=== PATIENT | female | born 1965 | race Caucasian/White ===

== ENCOUNTER 2017-03-22 09:02 | Outpatient (CLI) | payer OTHER ==
[2017-03-22] MEDS ORDERED: IOPAMIDOL-300 50 ML VIAL PO ONE (10:38)
[2017-03-22] MEDS ORDERED: IOPAMIDOL-300 100 ML VIAL IVP ONE (10:38)
== END 2017-03-22 09:03 | disposition home or self-care (01) ==
DX: R93.5 Abnormal findings on diagnostic imaging of other abdominal regions, including retroperitoneum (principal)
CPT/HCPCS: 74177; Q9967

== ENCOUNTER 2017-12-16 14:47 | Outpatient (CLI) | payer OTHER ==
--- NOTE | 2017-12-19 12:46 | Mammography Report ---
DIGITAL SCREENING MAMMOGRAM: 12/16/2017 CLINICAL INDICATION: A 52-year-old nulliparous patient with family history of breast cancer, for screening. COMPARISON: 02/2014, 10/2011, 03/2009, 02/2009. TECHNIQUE: Routine CC and MLO projections were obtained of the breasts. FINDINGS: The breasts again demonstrate heterogeneously dense fibroglandular parenchyma bilaterally. Punctate, typically benign calcifications are present. No suspicious masses, clustered microcalcifications, or regions of architectural distortion are identified. IMPRESSION: BENIGN FINDINGS. RECOMMENDATION: ROUTINE ANNUAL SCREENING UNLESS OTHERWISE CLINICALLY INDICATED. BIRADS CATEGORY 2-BENIGN FINDINGS. STANDARD QUALIFYING STATEMENTS: 1. This examination was reviewed with the aid of Computer-Aided Detection (CAD). 2. A negative or benign imaging report should not delay biopsy if clinically suspicious findings are present. Consider surgical consultation if warranted. More than 5% of cancers are not identified by imaging. 3. Dense breasts may obscure an underlying neoplasm. TD: 12/19/2017 12:46
== END 2017-12-16 14:48 | disposition home or self-care (01) ==
LOC: DI.S 14:47
PROVIDERS: ATTEND Physician Assistant
DX: Z12.31 Encounter for screening mammogram for malignant neoplasm of breast (principal); Z80.3 Family history of malignant neoplasm of breast
CPT/HCPCS: 77067

== ENCOUNTER 2018-03-06 11:16 | Day surgery (SDC) | payer OTHER ==
[2018-03-06] MEDS ORDERED: LACTATED RINGERS 1,000 ML IV ONE (11:47)
[2018-03-06] MEDS ORDERED: MIDAZOLAM 2 MG/2 ML VIAL IVP ONE (12:47)
[2018-03-06] MEDS ORDERED: fentaNYL 250 MCG/5 ML VIAL IVP ONE (12:47)
[2018-03-06 13:52] VITALS: BP 101/65
== END 2018-03-06 11:17 | disposition home or self-care (01) ==
LOC: SDS 11:16
PROVIDERS: ATTEND Surgery
PROC: 0DJD8ZZ Inspection of Lower Intestinal Tract, Via Natural or Artificial Opening Endoscopic (ICD-10-PCS; principal; 2018-03-06 12:45)
DX: Z12.11 Encounter for screening for malignant neoplasm of colon (principal); K57.30 Diverticulosis of large intestine without perforation or abscess without bleeding; K64.8 Other hemorrhoids
CPT/HCPCS: 45378; J3010; J7120

== ENCOUNTER 2019-03-12 14:00 | Outpatient (CLI) | payer OTHER ==
--- NOTE | 2019-03-13 10:47 | Mammography Report ---
Reason: SCREENING MAMMO Procedure Date: 03/12/2019 Accession Number: [id number] / [id number] Procedure: EMILI - Screening Mammo w/Octavio CPT Code: FULL RESULT: EXAM: Screening Mammo w/Octavio DATE: 03/12/2019 3:03 PM CLINICAL HISTORY: Screening encounter. History of benign breast cyst aspiration. Family history of breast cancer in the mother at age 67. History of nulliparity. TECHNIQUE: (B) - Bilateral CC, laterally exaggerated CC, MLO views were obtained. COMPARISON: 12/16/2017 through 03/19/2009. PARENCHYMAL PATTERN: (D) - The breast(s) demonstrate(s) heterogeneously dense fibroglandular parenchyma. FINDINGS: There are no suspicious masses, calcifications, or areas of distortion. IMPRESSION: Negative examination. BI-RADS category 1. RECOMMENDATION: (ANNUAL) - Recommend routine annual screening mammography. BI-RADS CATEGORY: (1) - Negative. STANDARD QUALIFYING STATEMENTS: 1. This examination was not reviewed with the aid of Computer-Aided Detection (CAD). 2. A negative or benign imaging report should not preclude biopsy if clinically suspicious findings are present. 3. Dense breasts may obscure an underlying neoplasm. 4. This examination was reviewed with the aid of 3D breast imaging (tomosynthesis).
== END 2019-03-12 14:01 | disposition home or self-care (01) ==
LOC: DI 14:00
PROVIDERS: ATTEND Physician Assistant
DX: Z12.31 Encounter for screening mammogram for malignant neoplasm of breast (principal)
CPT/HCPCS: 77063; 77067

== ENCOUNTER 2021-07-08 14:15 | Outpatient (CLI) | payer OTHER ==
--- NOTE | 2021-07-09 13:22 | Mammography Report ---
BILATERAL DIGITAL SCREENING MAMMOGRAM 3D/2D WITH EXAGGERATED CC: 07/08/2021 CLINICAL: Family history of breast cancer. Comparison is made to exams dated: 12/16/2017 mammogram, 02/14/2014 mammogram, 10/13/2011 mammogram, 03/07 mammogram, and 02/24/2009 mammogram - [facility]. The tissue of both breasts is heterogeneously dense. This may lower the sensitivity of mammography. No significant masses, calcifications, or other findings are seen in either breast. There has been no significant interval change. IMPRESSION: NEGATIVE There is no mammographic evidence of malignancy. A 1 year screening mammogram is recommended. This exam was interpreted at Station ID: [id number]. NOTE: For mammograms, a report in lay terms will be sent to the patient. Approximately 15% of breast malignancies will not be visualized mammographically. In the management of a palpable breast mass, a negative mammogram must not discourage biopsy of a clinically suspicious lesion. Electronically Signed By: Yamileth henry/mony:07/08/2021 16:20:48 ACR BI-RADS Category 1: Negative 3341F PARENCHYMAL PATTERN: (D) - The breast(s) demonstrate(s) heterogeneously dense fibroglandular gem yoder. BI-RADS CATEGORY: (1) - 1 RECOMMENDATION: (ANNUAL) - Recommend routine annual screening mammography. 20220709 1 year screening LATERALITY: (B)
== END 2021-07-08 14:16 | disposition home or self-care (01) ==
LOC: DI.S 14:15
DX: Z12.31 Encounter for screening mammogram for malignant neoplasm of breast (principal); Z80.3 Family history of malignant neoplasm of breast

== ENCOUNTER 2021-07-08 14:26 | Outpatient (CLI) | payer OTHER ==
[2021-07-08 20:22] LABS: ALBUMIN 4.2 g/dL (3.2-5.5); ALBUMIN/GLOBULIN RATIO 1.6 (1.0-2.2); ALKALINE PHOSPHATASE 44 IU/L (42-121); ALT ALANINE AMINOTRANSFERASE 17 IU/L (10-60); AST ASPARTATE AMINOTRANSFERASE 19 IU/L (10-42); BILIRUBIN,TOTAL 0.8 mg/dL (0.2-1.0); BUN - BLOOD UREA NITROGEN 11 mg/dL (6-20); CALCIUM 9.3 mg/dL (8.5-10.3); CARBON DIOXIDE - CO2 28 mmol/L (21-32); CHLORIDE 104 mmol/L (101-111); CHOL/HDL RATIO 4.2 (<4.4); CHOLESTEROL 258 mg/dL; CREATININE 0.7 mg/dL (0.4-1.0); GFR - MDRD 86 (>89); GLUCOSE 111 mg/dL (70-100); HDL CHOLESTEROL 61 mg/dL; LDL CHOLESTEROL,CALCULATED 174 mg/dL; LDL/HDL RATIO 2.9 (<4.4); POTASSIUM 3.8 mmol/L (3.5-5.0); SODIUM 140 mmol/L (135-145); TOTAL PROTEIN 6.9 g/dL (6.7-8.2); TRIGLYCERIDES 117 mg/dL; VLDL CHOLESTEROL 23 mg/dL
[2021-07-10 09:03] LABS: HEPATITIS C ANTIBODY NON-REACTIVE (NON-REACTIVE)
[2021-07-11 15:12] LABS: HIV AG/AB 4TH GEN NON-REACTIVE (NON-REACTIVE)
== END 2021-07-08 14:27 | disposition home or self-care (01) ==
LOC: LAB.S 14:26
PROVIDERS: ATTEND Nurse Practitioner Family
DX: E78.2 Mixed hyperlipidemia (principal); Z11.59 Encounter for screening for other viral diseases; Z11.4 Encounter for screening for human immunodeficiency virus [HIV]
CPT/HCPCS: 36415; 80053; 80061; 83721; 86803; 87389

== ENCOUNTER 2022-08-09 13:59 | Outpatient (CLI) | payer BC ==
--- NOTE | 2022-08-10 11:52 | Mammography Report ---
BILATERAL DIGITAL SCREENING MAMMOGRAM 3D/2D WITH EXAGGERATED CC: 08/09/2022 CLINICAL: Routine screening. Family history of breast cancer. Comparison is made to exams dated: 07/08/2021 mammogram, 12/16/2017 mammogram, and 03/12/2019 mammogram - [facility]. Both breasts are heterogeneously dense, which may obscure small masses (category c / 51-75% glandula r tissue). No significant masses, calcifications, or other findings are seen in either breast. There has been no significant interval change. IMPRESSION: NEGATIVE There is no mammographic evidence of malignancy. A 1 year screening mammogram is recommended. Based on the Tyrer Cuzick model (a risk assessment model) the patients lifetime risk is 13.6% and he r 10 year risk is 5.1%. According to the ACR, ACS, and NCCN guidelines, an annual breast MRI exam sandhya ng with mammogram is recommended if the patients lifetime risk is 20% or greater. This exam was interpreted at Station ID: [id number]. NOTE: For mammograms, a report in lay terms will be sent to the patient. Approximately 15% of breast malignancies will not be visualized mammographically. In the management of a palpable breast mass, a negative mammogram must not discourage biopsy of a clinically suspicious lesion. Electronically Signed By: Varghese johnson/mony:08/09/2022 16:25:36 ACR BI-RADS Category 1: Negative 3341F PARENCHYMAL PATTERN: (D) - The breast(s) demonstrate(s) heterogeneously dense fibroglandular gem yoder. BI-RADS CATEGORY: (1) - 1 RECOMMENDATION: (ANNUAL) - Recommend routine annual screening mammography. [id number] 1 year screening LATERALITY: (B)
== END 2022-08-09 14:00 | disposition home or self-care (01) ==
LOC: DI.S 13:59
PROVIDERS: ATTEND Nurse Practitioner Family
DX: Z12.31 Encounter for screening mammogram for malignant neoplasm of breast (principal); Z80.3 Family history of malignant neoplasm of breast

== ENCOUNTER 2023-05-12 13:23 | Outpatient (CLI) | payer BC, OTHER ==
--- NOTE | 2023-05-12 16:39 | Ultrasound Report ---
PROCEDURE: Pelvic w/Transvaginal INDICATIONS: PELVIC PAIN TECHNIQUE: Real-time scanning was performed of the pelvic organs, with image documentation. Additional endovagi nal scanning was necessary due to incomplete visualization of the adnexal and endometrial structures by transabdominal scanning. COMPARISON: CT abdomen pelvis 03/22/2017. FINDINGS: Uterus: Uterus is anteverted and normal in size at 4.3 x 3.3 x 2.2 cm. The myometrium is heterogene ous. The endometrium measures 3 mm in combined thickness. Right posterior subserosal fibroid measur ing 0.8 cm. Left posterior intramural fibroid measuring 0.9 cm. Fibroids appear decreased. Ovaries: The right ovary measures 1.7 x 1.2 x 1.1 cm, with a calculated ovarian volume of 1 cc. The left ovary measures 1.5 x 1.4 x 0.8 cm, with a calculated ovarian volume of 1 cc. The ovaries have a normal sonographic appearance. Less than 12 follicles can be seen in each ovary. No adnexal peter s are seen. No cystic lesions measuring greater than 3 cm. Other: No pathologic free abdominal or pelvic fluid. IMPRESSION: 1. Endometrium measures 3 mm. 2. Small fibroids appear decreased. 3. No significant ovarian cyst. Reviewed by: Luke Recio MD on 05/12/2023 4:37 PM PDT Approved by: Luke Recio MD on 05/12/2023 4:37 PM PDT Station ID: [id number]
== END 2023-05-12 13:24 | disposition home or self-care (01) ==
LOC: DI 13:23
PROVIDERS: ATTEND Nurse Practitioner
DX: R10.2 Pelvic and perineal pain (principal); D25.9 Leiomyoma of uterus, unspecified; Z87.42 Personal history of other diseases of the female genital tract

== ENCOUNTER 2024-02-21 08:00 | Outpatient (CLI) | payer OTHER ==
--- NOTE | 2024-02-21 22:20 | XRAY Report ---
PROCEDURE: Thoracic Spine 3V INDICATIONS: THORACIC BACK PAIN TECHNIQUE: 2 view(s) of the thoracic spine were acquired. COMPARISON: None FINDINGS: Bones: Vertebral body height and alignment maintained. No lytic or blastic intrinsic lesions. Soft tissues: Paravertebral soft tissues are unremarkable. Surgical clips in the right upper quadrant IMPRESSION: Unremarkable thoracic spine radiographs Reviewed by: Karri Good MD on 02/21/2024 9:19 PM DALIA Approved by: Karri Good MD on 02/21/2024 9:19 PM AKNADJA Station ID: [id number]
== END 2024-02-21 23:59 | disposition home or self-care (01) ==
LOC: DI.S 08:00
PROVIDERS: ATTEND Emergency Medicine
DX: M54.6 Pain in thoracic spine (principal)

== ENCOUNTER 2024-03-02 13:41 | Outpatient (CLI) | payer OTHER | END 2024-03-02 13:42 | disposition home or self-care (01) | LOC: DI 13:41 | PROVIDERS: ATTEND Internal Medicine | DX: D35.00 Benign neoplasm of unspecified adrenal gland (principal) | CPT/HCPCS: 93307 ==

== ENCOUNTER 2024-03-02 13:53 | Outpatient (CLI) | payer OTHER ==
--- NOTE | 2024-03-02 15:54 | DEXA Report ---
PROCEDURE: Dexa Spine and/or Hip INDICATIONS: HORMONE REPLACEMENT THERAPY TECHNIQUE: Dual energy x-ray absorptiometry (DXA) was performed on a [employer]. Regions measur ed are the AP Spine, femoral neck, and if needed forearm. COMPARISON: None FINDINGS: Lumbar Spine: Bone Mineral Density: 1.229 g/cm/cm,T score: 0.4. Left Femoral Neck: Bone Mineral Density: 0.903 g/cm/cm, T score: -1. Left Hip: Bone Mineral Density: 0.964 g/cm/cm,T score: -0.3. (T score greater or equal to -1.0: NORMAL) (T score from -1.1 to -2.4: OSTEOPENIA) (T score less than or equal to -2.5 to: OSTEOPOROSIS) Impression: By WHO criteria, this patient has normal bone density. Patients with diagnosis of osteoporosis or osteopenia should have regular bone mineral density assess ment. For those eligible for Medicare, routine testing is allowed once every 2 years. Testing frequ ency can be increased for patients who have rapidly progressing disease or for those who are receivin g medical therapy to restore bone mass. Reviewed by: Deric Cho MD on 03/02/2024 3:53 PM PDT Approved by: Deric Cho MD on 03/02/2024 3:53 PM PDT Station ID: [id number]
== END 2024-03-02 13:54 | disposition home or self-care (01) ==
LOC: DI 13:53
PROVIDERS: ATTEND Internal Medicine
DX: Z79.890 Hormone replacement therapy (principal)

== ENCOUNTER 2024-03-08 07:46 | Outpatient (CLI) | payer OTHER ==
[2024-03-08 15:09] LABS: BASOPHILS # (AUTO) 0.1 10^3/uL (0.0-0.1); BASOPHILS % (AUTO) 1.1 %; EOSINOPHILS # (AUTO) 0.1 10^3/uL (0.0-0.7); HCT - HEMATOCRIT 42.7 % (37.0-47.0); HGB - HEMOGLOBIN 13.7 g/dL (12.0-16.0); LYMPHOCYTES # (AUTO) 1.5 10^3/uL (1.5-3.5); LYMPHOCYTES % (AUTO) 31.7 %; MEAN CORPUSCULAR HEMOGLOBIN 31.6 pg (27.0-31.0); MEAN CORPUSCULAR HGB CONC 32.1 g/dL (32.0-36.0); MEAN CORPUSCULAR VOLUME 98.4 fL (81.0-99.0); MEAN PLATELET VOLUME 9.4 fL (7.9-10.8); MONOCYTES # (AUTO) 0.5 10^3/uL (0.0-1.0); MONOCYTES % (AUTO) 10.7 %; NEUTROPHILS # (AUTO) 2.5 10^3/uL (1.5-6.6); NEUTROPHILS % (AUTO) 54.3 %; PLT - PLATELET COUNT 235 10^3/uL (130-450); RED BLOOD COUNT 4.34 10^6/uL (4.20-5.40); RED CELL DISTRIBUTION WIDTH 12.2 % (12.0-15.0); WHITE BLOOD COUNT 4.6 x10^3/uL (4.8-10.8)
[2024-03-08 15:42] LABS: ALBUMIN 4.5 g/dL (3.2-5.5); ALBUMIN/GLOBULIN RATIO 1.7 (1.0-2.2); ALKALINE PHOSPHATASE 62 IU/L (42-121); ALT ALANINE AMINOTRANSFERASE 18 IU/L (10-60); AST ASPARTATE AMINOTRANSFERASE 17 IU/L (10-42); BILIRUBIN,TOTAL 0.7 mg/dL (0.2-1.0); BUN - BLOOD UREA NITROGEN 12 mg/dL (6-20); CALCIUM 9.9 mg/dL (8.5-10.3); CARBON DIOXIDE - CO2 30 mmol/L (21-32); CHLORIDE 102 mmol/L (101-111); CHOL/HDL RATIO 3.8 (<4.4); CHOLESTEROL 242 mg/dL; CREATININE 0.8 mg/dL (0.6-1.3); GFR - MDRD 73 (>89); GLUCOSE 91 mg/dL (74-104); HDL CHOLESTEROL 63 mg/dL; LDL CHOLESTEROL,CALCULATED 155 mg/dL; LDL/HDL RATIO 2.5 (<4.4); POTASSIUM 3.9 mmol/L (3.5-4.5); SODIUM 137 mmol/L (135-145); TOTAL PROTEIN 7.1 g/dL (6.4-8.9); TRIGLYCERIDES 121 mg/dL (48-352); VLDL CHOLESTEROL 24 mg/dL
[2024-03-08 16:04] LABS: THYROID STIMULATING HORMONE 3.06 uIU/mL (0.34-5.60)
[2024-03-08 20:25] LABS: ESTIMATED AVERAGE GLUCOSE 111 mg/dL (70-100); HEMOGLOBIN A1c% 5.5 % (4.27-6.07)
== END 2024-03-08 07:47 | disposition home or self-care (01) ==
LOC: LAB.S 07:46
PROVIDERS: ATTEND Internal Medicine
DX: D35.01 Benign neoplasm of right adrenal gland (principal); Z79.890 Hormone replacement therapy
CPT/HCPCS: 36415; 80053; 80061; 82670; 83036; 83721; 84403; 84443; 85025

== ENCOUNTER 2024-03-14 11:10 | Outpatient (CLI) | payer OTHER ==
--- NOTE | 2024-03-14 11:53 | Sleep Patient Instructions ---
Sleep Center Visit Summary - Patient Visit Information Reason for Visit: Initial consult for evaluation of sleep disordered breathing and other sleep issues. - Patient Instructions Instructions Attached: Sleep Study, Sleep Study Home Monitor Additional Instructions: You will be completing a sleep study, either an in-lab polysomnography (PSG) or home sleep study (HST). You will follow-up in the sleep care office after the sleep study is completed to hear the results and talk about therapy, if needed. You will be called by our office staff to schedule this appointment, but you may contact us with any questions. - Clinic Information Contact: [facility] [address] [place] [id number] [email or web address] T: [phone]
--- NOTE | 2024-03-14 12:08 | SLEEP CARE CONSULTATION ---
Information from patient questionnaire entered by Jessica Haro. I have reviewed and concur with the information entered by Jessica Haro. This document represents the service I personally performed and the decisions made by me, Piedad Lance ARNP. History of Present Illness Service Date and Time: 03/14/2024 1110 Reason for Visit: New patient Chief Complaint: reports: Unrefreshed sleep, Snoring, Observed pauses in breathing, Fatigue, Frequent awakenings at night, Other (PARTNER NOTICES RAPID DEEP BREATHING AND MOANING) Date of Onset: 6+MONTHS Usual bedtime: 8188-3161 Time it takes to fall asleep: 20MINS Snores at night: Yes Observed to quit breathing while asleep: Yes Sleeps alone due to snoring: No Number of times waking at night: 3+ Reasons for waking at night: reports: Snoring, Gasping for air, Bathroom, Other (MOANING) Toss, Turn, or Twitch while sleeping: No Recalls having dreams: Yes Usually gets out of bed at: 7-8 AM Feels refreshed in the morning: No Morning headache: No Sleepy or fatigued during the day: Yes Ever fallen asleep while driving: No Takes day naps: No Dreams during day naps: No Prior sleep studies: No Additional HPI information: I had the pleasure of seeing BONNIE PATRICIA today regarding the possibility of her having a sleep disorder. Her current complaints are fatigue, frequent night awakenings, observed pauses in breathing, snoring and unrefreshed sleep. Her partner () has noticed that she has rapid deep breathing and moaning in last few months. She says she does not feel rested in the morning. She is fatigued during day but does not normally take naps. She is working with an ENT for allergy testing and evaluation of possible narrow nasal passage on right side of nose. 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 Patient is Domestic Partner and lives in [place]. Have you smoked in the past 12 months: No (social smoker in 20s) Years of smokin Quit date: 1989 Alcohol use: Yes Alcohol amount and frequency: 2-3 DRINKS 5-6 NIGHTS / WEEK Caffeine use: Yes Caffeine amount and frequency: 2-3 CUPS EVERY MORNING Family History Family history of sleep disordered breathing: Yes Family Hx Sleep Apnea: Father: Snoring, Sleep apnea - Treated Allergies and Home Medications Known drug allergies: No Drug allergies reviewed: Yes Home medication list reviewed: Yes (as listed) Allergy and home medication list: Allergies No Known Drug Allergies Allergy (Verified 03/12/24 09:10) Home Medications Medication Instructions Recorded Confirmed Last Taken Type Lorazepam [Ativan] 1 mg ORAL PRN PRN 03/03/18 03/14/24 03/04/18 History Escitalopram [Lexapro] 10 mg PO DAILY 03/06/18 03/14/24 02/27/18 History Testosterone [Androgel] See Rx Instructions .ROUTE .COMPLEX 03/14/24 03/14/24 Unknown History buPROPion [Wellbutrin Sr] See Rx Instructions .ROUTE .COMPLEX 03/14/24 03/14/24 Unknown History Review of Systems Weight gain over past 5 years: 5-10 Cardiovascular: denies: high blood pressure Gastrointestinal: denies: heartburn Urinary: reports: frequency Neurological: denies: head trauma Psychiatric: reports: Attention Deficit Hyperactivity, anxiety Ear/Nose/Throat: reports: nasal congestion, sinus problems. denies: injury to nose, tonsillectomy Endocrine: reports: sluggishness, increased urination Musculoskeletal: reports: back pain Immunologic: reports: sneezing, allergies to food or environment Physical Exam Vital signs obtained and entered by: JESSICA Sung MA Blood Pressure: 114/81 (RIGHT ARM) Cuff size: regular Heart Rate: 70 O2 Saturation: 99 Height: 5 ft 2 in Weight: 138 lb 9.6 oz Body Mass Index: 25.3 BMI Classification: Overweight Neck circumference: 14.5 Mouth and throat: narrow oropharynx Soft palate: long Hard palate: normal Uvula: normal Uvula visualization: 25% Mallampati Class III Tongue: enlarged in size with teeth adames on lateral edges Tonsils: small Neck: normal w/o lymphadenopathy or thyromegaly Heart: regular rate and rhythm Lungs: clear bilaterally Impression and Plan 1. Suspected Obstructive Sleep Apnea-Hypopnea Syndrome, as suggested by a history of loud and irregular snoring, observed cessation of breath while asleep, gasping or choking in sleep, frequent awakening during the night, unrefreshed sleep and cognitive impairment. Narrow oropharynx and obesity are common predisposing factors for obstructive sleep apnea-hypopnea syndrome. I recommend proceeding to polysomnography to confirm the diagnosis and to assess severity. If the patient has significant sleep disordered breathing, a manual CPAP titration study will also be performed to find the optimal treatment pressure. I informed the patient of what the sleep studies involve and after some discussion, obtained agreement to proceed. The pathophysiology of obstr uctive sleep apnea-hypopnea syndrome was discussed with the patient and health risks of cardiovascular and cerebrovascular disease if not treated. Risks of drowsy driving discussed in detail and patient advised to avoid long distance driving and to basting puller at the first sign of drowsiness. Patient agreed to plan. * Schedule polysomnography. * Avoid long distance driving or driving when feeling sleepy. * Avoid alcohol, sedative and muscle relaxant around bedtime. * Attempt to lose weight. * Review instructions provided by trained office staff on how to prepare for the sleep study. * Return for follow-up after sleep study completed. Counseling Topics: Weight control Plan: PSG/HST and followup Visit Type: In Office Time Spent with Patient (minutes): 41 Provider Statement: I spent 100% of the Face to Face Visit with the patient with greater than 50% spent counseling the patient and coordination of care.
[2024-03-14 12:16] VITALS: BP 114/81; O2SAT 99
== END 2024-03-14 11:11 | disposition home or self-care (01) ==
LOC: SC 11:10
PROVIDERS: ATTEND Nurse Practitioner Family
DX: R06.81 Apnea, not elsewhere classified (principal); G47.8 Other sleep disorders; R41.89 Other symptoms and signs involving cognitive functions and awareness; R06.83 Snoring; Z87.891 Personal history of nicotine dependence
CPT/HCPCS: 99203; 99212

== ENCOUNTER 2024-04-12 14:58 | Emergency (ER) | payer OTHER ==
--- NOTE | 2024-04-12 15:36 | ED Physician Documentation ---
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 She has been having ongoing sinus symptoms and more recently has had progressive right-sided hearing loss for which she is seeing an ENT. For the last 2 weeks she has developed new headaches, they are shocking and tingly sensations on the top of the scalp always on the right side, sometimes radiating back and sometimes radiating towards the ear. Worse today. She had an IAC protocol MRI done at [facility] 2 days ago, results are not known but we will try to get them. PD PAST MEDICAL HISTORY - Past Medical History Past Medical History: Yes Cardiovascular: None Respiratory: None Endocrine/Autoimmune: None GI: None : None HEENT: None Psych: None Musculoskeletal: None Derm: None - Past Surgical History Past Surgical History: Yes General: Colonoscopy, Other - Present Medications Home Medications: Ambulatory Orders Medication Instructions Recorded Confirmed Lorazepam [Ativan] 1 mg ORAL PRN PRN 03/03/18 04/12/24 Testosterone [Androgel] See Rx Instructions .ROUTE .COMPLEX 03/14/24 04/12/24 buPROPion [Wellbutrin Sr] See Rx Instructions .ROUTE .COMPLEX 03/14/24 04/12/24 carBAMazepine [TEGretol] 200 mg PO BID #120 tablet 04/12/24 - Allergies Allergies/Adverse Reactions: Allergies Allergy/AdvReac Type Severity Reaction Status Date / Time No Known Drug Allergies Allergy Verified 04/12/24 15:03 - Social History Does the pt smoke?: No Smoking Status: Never smoker Does the pt drink ETOH?: No Does the pt have substance abuse?: No - Immunizations Immunizations are current?: Yes - POLST Patient has POLST: No PD ED PE NORMAL - Vitals Vital signs reviewed: Yes - General General: Alert and oriented X 3, No acute distress - HEENT HEENT: PERRL, EOMI, Ears normal, Other (No shingles rash on the scalp) - Neck Neck: Supple, no meningeal sign, No bony TTP - Neuro Neuro: Alert and oriented X 3, industrial designer 2-12 intact, No motor deficit, No sensory deficit, Normal speech Eye Opening: Spontaneous Motor: Obeys Commands Verbal: Oriented GCS Score: 15 - Psych Psych: Normal mood, Normal affect Results - Vitals Vitals: Vital Signs - 24 hr 04/12/24 15:03 Temperature 36.5 C Heart Rate 78 Respiratory 16 Rate Blood Pressure 110/87 H O2 Saturation 100 Oxygen O2 Source Room air - Labs Labs: Laboratory Tests 04/12/24 04/12/24 04/12/24 15:41 15:41 15:41 WBC 5.6 RBC 4.31 Hgb 14.3 Hct 40.5 MCV 94.0 MCH 33.2 H MCHC 35.3 RDW 11.9 L Plt Count 238 MPV 8.8 Neut # (Auto) 3.4 Lymph # (Auto) 1.6 [place] # (Auto) 0.4 Eos # (Auto) 0.1 Baso # (Auto) 0.1 Absolute Nucleated RBC 0.00 Nucleated RBC % 0.0 ESR 2 Sodium 134 L Potassium 3.6 Chloride 100 L Carbon Dioxide 28 Anion Gap 6.0 BUN 8 Creatinine 0.7 Estimated GFR (MDRD) 85 L Glucose 95 Calcium 9.9 Total Bilirubin 0.8 AST 17 ALT 15 Alkaline Phosphatase 62 C-Reactive Protein < 0.5 Total Protein 7.3 Albumin 4.9 Globulin 2.4 Albumin/Globulin Ratio 2.0 - Rads (name of study) CTA and CT of the head were negative. Relevant Findings:: Final report received, EMP independent interpretation of test PD Medical Decision Making - ED course ED course: She presents with 2 weeks of headache, the description of it sounds like a variant of trigeminal neuralgia, shocking pains kind of and distribution of the scalp. That said giant cell arteritis was screened for with ESR and CRP which were negative. Otherwise CBC and CMP were unremarkable. She was somewhat worried about aneurysm and this was screened for with CT/CTA which was negative as well. Given the neuropathic type pain component we did give her carbamazepine here which was very helpful for her headache. Departure - Departure Disposition: 01 Home, Self Care Clinical Impression: Headache Qualifiers: Headache type: unspecified Headache chronicity pattern: acute headache Intractability: not intractable Qualified Code(s): R51.9 - Headache, unspecified Condition: Good Record reviewed to determine appropriate education?: Yes Instructions: ED Neuralgia Trigeminal Prescriptions: carBAMazepine [TEGretol] 200 mg PO BID #120 tablet Comments: I sent your prescription electronically to the [email or web address] in [place]. As discussed, the pattern and description of your headache sounds like a neuropathic/neuralgic component. The distribution is not quite right for trigeminal neuralgia but I would not be surprised if it is a variant of that. For that I am prescribing the usual medication for that which is a antiseizure drug called carbamazepine. Follow-up with your primary care physician with consideration for referral to neurology. Generally the carbamazepine is taken as a routine medication but given that your headache is acute, it would not be unreasonable to stop it in a few days to and then only restarted if the headache were to recur. Return for new or worsening symptoms. Forms: PCP List
[2024-04-12 16:03] LABS: BASOPHILS # (AUTO) 0.1 10^3/uL (0.0-0.1); BASOPHILS % (AUTO) 0.9 %; EOSINOPHILS # (AUTO) 0.1 10^3/uL (0.0-0.7); EOSINOPHILS % (AUTO) 0.9 %; HCT - HEMATOCRIT 40.5 % (37.0-47.0); HGB - HEMOGLOBIN 14.3 g/dL (12.0-16.0); LYMPHOCYTES # (AUTO) 1.6 10^3/uL (1.5-3.5); LYMPHOCYTES % (AUTO) 28.8 %; MEAN CORPUSCULAR HEMOGLOBIN 33.2 pg (27.0-31.0); MEAN CORPUSCULAR HGB CONC 35.3 g/dL (32.0-36.0); MEAN PLATELET VOLUME 8.8 fL (7.9-10.8); MONOCYTES # (AUTO) 0.4 10^3/uL (0.0-1.0); MONOCYTES % (AUTO) 7.9 %; NEUTROPHILS # (AUTO) 3.4 10^3/uL (1.5-6.6); NEUTROPHILS % (AUTO) 61.3 %; PLT - PLATELET COUNT 238 10^3/uL (130-450); RED BLOOD COUNT 4.31 10^6/uL (4.20-5.40); RED CELL DISTRIBUTION WIDTH 11.9 % (12.0-15.0); WHITE BLOOD COUNT 5.6 x10^3/uL (4.8-10.8)
[2024-04-12] MEDS: carBAMazepine 200 MG TABLET PO STA (16:10)
[2024-04-12 16:16] LABS: ALBUMIN 4.9 g/dL (3.2-5.5); ALKALINE PHOSPHATASE 62 IU/L (42-121); ALT ALANINE AMINOTRANSFERASE 15 IU/L (10-60); AST ASPARTATE AMINOTRANSFERASE 17 IU/L (10-42); BILIRUBIN,TOTAL 0.8 mg/dL (0.2-1.0); BUN - BLOOD UREA NITROGEN 8 mg/dL (6-20); CALCIUM 9.9 mg/dL (8.5-10.3); CARBON DIOXIDE - CO2 28 mmol/L (21-32); CHLORIDE 100 mmol/L (101-111); CREATININE 0.7 mg/dL (0.6-1.3); CRP - C-REACTIVE PROTEIN < 0.5 mg/dL (<0.5); GFR - MDRD 85 (>89); GLUCOSE 95 mg/dL (74-104); POTASSIUM 3.6 mmol/L (3.5-4.5); SODIUM 134 mmol/L (135-145); TOTAL PROTEIN 7.3 g/dL (6.4-8.9)
[2024-04-12] MEDS ORDERED: iohexoL-300 100 ML VIAL ONE (16:20)
--- NOTE | 2024-04-12 17:14 | CT Report ---
PROCEDURE: Head WO INDICATIONS: R STERN TECHNIQUE: Noncontrast 4.5 mm thick angled axial sections acquired from the foramen magnum to the vertex. For r adiation dose reduction, the following was used: automated exposure control, adjustment of mA and/or kV according to patient size. COMPARISON: None. FINDINGS: Image quality: Excellent. CSF spaces: Basal cisterns are patent. No extra-axial fluid collections. Ventricles are normal in size and shape. Brain: No midline shift. No intracranial masses or hemorrhage. Osorio-white matter interface is norm al. Skull and face: Calvarium and visualized facial bones are intact, without suspicious lesions. Sinuses: Visualized sinuses and mastoids are clear. IMPRESSION: No acute intracranial pathology. Reviewed by: Deric Cho MD on 04/12/2024 5:13 PM PDT Approved by: Deric Cho MD on 04/12/2024 5:13 PM PDT Station ID: [id number]
--- NOTE | 2024-04-12 17:16 | CT Report ---
PROCEDURE: CT Angio Head INDICATIONS: R STERN CONTRAST: Omni 300 80ml TECHNIQUE: After the administration of intravenous contrast, 1 mm thick sections acquired through the [place] [facility] [place]. Postcontrast 4.5 mm thick sections then re-acquired from the foramen magnum to the vertex. 3-dimensional esdawmc-bmqedbzfy-djogtgzdwr (MIP) and/or volume rendering reformats were acquired of t central intracranial vasculature. For radiation dose reduction, the following was used: automate d exposure control, adjustment of mA and/or kV according to patient size. COMPARISON: None. FINDINGS: Image quality: Diagnostic. Anterior circulation: Intracranial internal carotid arteries are normal in size and flow. The flow within the paired anterior cerebral arteries is normal and symmetric. The flow within the middle cer ebral arteries is normal and symmetric. The anterior communicating artery is seen. No aneurysms are seen. Posterior circulation: Visualized portions of the vertebral arteries demonstrate normal caliber, and join to form a normal appearing basilar artery. Flow within the posterior cerebral arteries is norm al and symmetric. No aneurysms are seen. CSF spaces: Ventricles are normal in size and shape. Basal cisterns are patent. No extra-axial flu id collections. Brain: No midline shift. No intracranial bleeds or masses. Osorio-white matter interface appears int act. Skull and face: Calvarium and facial bones appear intact, without suspicious lesions. Sinuses: Visualized sinuses and mastoids are clear. IMPRESSION: No significant intracranial arterial abnormality is seen. Reviewed by: Deric Cho MD on 04/12/2024 5:14 PM PDT Approved by: Deric Cho MD on 04/12/2024 5:14 PM PDT Station ID: [id number]
[2024-04-12] MEDS: iohexoL-300 100 ML VIAL IVP ONE (17:19)
[2024-04-12 17:47] VITALS: BP 117/79; O2SAT 99
== END 2024-04-12 17:43 | disposition home or self-care (01) ==
LOC: ED 14:58
DX: R51.9 Headache, unspecified (principal)
CPT/HCPCS: 36415; 70450; 70496; 80053; 85025; 85651; 86140; 99284; A9270; Q9967